=== PATIENT | male | born 1940 | race Caucasian/White ===

== ENCOUNTER 2024-03-22 04:05 | Outpatient (CLI) | payer MEDICARE, BC, SELFPAY ==
[2024-03-22] MEDS: Levalbuterol HFA 15 GM INH 4 PUFF IH (09:08)
[2024-03-22] MEDS: Inhaler, Assist Device 1 EACH MC (09:09)
--- NOTE | 2024-03-31 12:45 | W.PFT ---
Date of service: 03/22/24 Time of Service: 08:00 Pulmonary Function Test Result Requesting Provider Marcie Kramer Indications: Mass RUL Interpretation Spirometry: Normal Lung Volumes: Normal Diffusion Capacity: Normal Impression Normal spirometry lung volumes and normal diffusion. Normal flow-volume loop. Clinical Correlation therefore is recommended.
== END 2024-03-22 04:06 | disposition home or self-care (01) ==
LOC: RT 04:05
PROVIDERS: PCP Family Medicine; Visit Provider Nurse Practitioner Family
DX: R91.8 Other nonspecific abnormal finding of lung field (principal)
CPT/HCPCS: 00123; 94060; 94726; 94729

== ENCOUNTER → 2024-04-12 02:11 | Outpatient (CLI) | payer MEDICARE, BC, SELFPAY ==
--- NOTE | 2024-04-12 | DI.MRI_ITS ---
Exam(s) MR BRAIN WO/W EXAM: MR BRAIN WO/W CLINICAL HISTORY: R91.8 Mass Upper lobe RT lung,eval for mets TECHNIQUE: Multiplanar multisequence MRI of the brain was performed. Both noninfused and contrast i nfused sequences were performed. IV Contrast injected was cc Dotarem. COMPARISON: MR MR BRAIN WO CONTRAST from 04/14/2018 (outside study) CR XR CHEST SINGLE VIEW from 01/15/2024 FINDINGS: CEREBRAL PARENCHYMA: No evidence of intracranial hemorrhage, new mass effect nor shift of midline str ucture. No extraaxial fluid collections. Ventricles are not enlarged nor shifted. There is no significant focal signal abnormality in the cerebellar hemispheres nor within the simone, m idbrain, and thalami. Again noted is abundant periventricular and white matter signal abnormality, exhibiting minimal landaverde e from outside MRI images of April 2018. DWI: No areas of restricted diffusion to suggest acute ischemic event. SWI: No microhemorrhages evident. There are no ring enhancing lesions in the brain. There is no abnormal meningeal enhancement. PITUITARY GLAND: No mass nor parasellar abnormality. No obvious abnormality in the cavernous sinuses. FLOW VOIDS: The expected flow void are noted. No evidence of obvious aneurysm nor obvious vascular ma lformation. PARANASAL SINUSES: Mucosal thickening noted in the maxillary sinuses, more so on the right side but n ot associated with fluid levels. ORBITS: No obvious abnormal findings. IMPRESSION: 1. No significant acute intracranial findings on this MRI scan of the brain. 2. No abnormal enhancing intracranial findings. There are no ring enhancing lesions in the brain and there is no abnormal meningeal enhancement. No evidence of metastatic disease in the brain, given t he history here.. DATA REPOSITORY:
[2024-04-12] MEDS: Normal Saline Flush 10 ML SYR IVP (07:53)
[2024-04-12] MEDS: Gadoterate meglumine 20 ML SYRINGE 17 ML IVP (07:54)
== END ==
PROVIDERS: PCP Family Medicine; Visit Provider Nurse Practitioner Family
DX: R91.8 Other nonspecific abnormal finding of lung field (principal)
CPT/HCPCS: 70553